=== PATIENT | female | born 1950 | race Caucasian/White ===

== ENCOUNTER 2018-07-12 12:15 | Emergency (ER) | payer OTHER ==
[~2018-07-12] VITALS: Ht 157.5 cm; Wt 77.6 kg
[2018-07-12 12:29] VITALS: Ht 157.5 cm; Wt 77.6 kg
[2018-07-12 14:05] VITALS: BP 155/68
== END 2018-07-12 14:05 | disposition home or self-care (01) ==
LOC: ED 12:15
DX: M25.561 Pain in right knee (principal); I10 Essential (primary) hypertension; E11.9 Type 2 diabetes mellitus without complications; Z88.8 Allergy status to other drugs, medicaments and biological substances
CPT/HCPCS: J1885

== ENCOUNTER 2018-12-10 09:02 | Inpatient (IN) | payer OTHER ==
[~2018-12-10] VITALS: Ht 157.5 cm; Wt 75.8 kg
[2018-12-10 09:11] VITALS: Ht 157.5 cm; Wt 75.8 kg
[2018-12-10 11:15] LABS: BASOPHIL % 0.4 % (0-2); PLATELET COUNT 284 x10^3mcL (130-400); RED CELL DISTRIBUTION WIDTH 14.2 % (11.5-14.5)
[2018-12-10 11:27] LABS: ALBUMIN 3.4 g/dL (3.4-5.0); BILIRUBIN TOTAL 0.82 mg/dL (0.20-1.00); CALCIUM 9.5 mg/dL (8.5-10.1); POTASSIUM SERUM 3.2 mmol/L (3.5-5.1); TOTAL PROTEIN, SERUM 7.3 g/dL (6.4-8.2)
[2018-12-10 13:06] LABS: UA SPECIFIC GRAVITY 1.015 (1.005-1.035); microscopic required? YES; urine erythrocyte 1+ (NEGATIVE)
[2018-12-10] MEDS ORDERED: TOPROL XL25 MG (14:34)
[2018-12-10] MEDS ORDERED: ZESTRIL5 MG (14:34)
[2018-12-10] MEDS ORDERED: METFORMIN HYDR500 M1 PO (14:34)
[2018-12-10] MEDS ORDERED: GLYBURIDE5 MG (14:34)
[2018-12-10] MEDS ORDERED: LOMOTIL1 TAB (14:35)
[2018-12-10] MEDS ORDERED: LIPITOR10 MG (14:36)
[2018-12-10] MEDS ORDERED: GLUCOPHAGE XR500 MG (14:37)
[2018-12-10 16:55] VITALS: BP 111/53
[2018-12-10 17:01] LABS: CHOLESTEROL/HDL RATIO 3.1; MAGNESIUM 1.2 mg/dL (1.8-2.4); PHOSPHOROUS 3.8 mg/dL (2.5-4.9)
[2018-12-10 17:16] LABS: T3 TOTAL 0.93 ng/mL
[2018-12-10 17:20] LABS: FREE T4 1.22 ng/dL (0.76-1.46); FREE THYROXINE INDEX 2.2 ug/dL (1.4-4.5); T4(THYROXINE) 6.4 ug/dL (4.7-13.3)
[2018-12-10 17:58] LABS: AMPHETAMINE QUAL UR NONE DETECTED (See below)
[2018-12-10 21:21] VITALS: BP 135/62
[2018-12-11 05:23] VITALS: BP 131/58
[2018-12-11 06:31] LABS: CARBON DIOXIDE 25.4 mmol/L (21-32); CHLORIDE SERUM 106 mmol/L (98-107); CREATININE SERUM 0.8 mg/dL (0.6-1.0); GFR1 > 60 mL/min; GLUCOSE SERUM 152 mg/dL (74-106); MAGNESIUM 1.7 mg/dL (1.8-2.4); PHOSPHOROUS 2.7 mg/dL (2.5-4.9); POTASSIUM SERUM 3.9 mmol/L (3.5-5.1); SODIUM SERUM 141 mmol/L (136-145)
[2018-12-11 06:47] LABS: BASOPHIL % 0.4 % (0-2); PLATELET COUNT 280 x10^3mcL (130-400); RED CELL DISTRIBUTION WIDTH 14.1 % (11.5-14.5)
[2018-12-11 09:00] VITALS: BP 142/52
[2018-12-11] MEDS ORDERED: CIPROFLOXACIN500 MG PO (11:35)
[2018-12-11] MEDS ORDERED: MOT600 PO (11:36)
[2018-12-11 12:00] VITALS: BP 123/53
== END 2018-12-11 15:30 | disposition home or self-care (01) | DRG 73 ==
LOC: ED 09:02 → DU 15:46
PROVIDERS: Emergency Medicine; ADMIT Family Medicine
DX: G90.8 Other disorders of autonomic nervous system (principal); N17.0 Acute kidney failure with tubular necrosis; N39.0 Urinary tract infection, site not specified; E86.0 Dehydration; E11.65 Type 2 diabetes mellitus with hyperglycemia; F43.0 Acute stress reaction; I10 Essential (primary) hypertension; E87.6 Hypokalemia; E04.1 Nontoxic single thyroid nodule; M54.9 Dorsalgia, unspecified; E83.42 Hypomagnesemia; K58.9 Irritable bowel syndrome, unspecified; Z68.30 Body mass index [BMI] 30.0-30.9, adult; Z79.84 Long term (current) use of oral hypoglycemic drugs
CPT/HCPCS: 82962; 83880; 84439; J0696; J2270; J2405; J3475; J7030; Q0092; Q9967

== ENCOUNTER 2019-11-21 12:31 | Emergency (ER) | payer OTHER, SELFPAY ==
[~2019-11-21] VITALS: Ht 160 cm; Wt 68.5 kg
[~2019-11-21 12:31] MED LIST: CIPROFLOXACIN500 MG PO; GLUCOPHAGE XR500 MG; GLYBURIDE5 MG; LIPITOR10 MG; LOMOTIL1 TAB; METFORMIN HYDR500 M1 PO; MOT600 PO; TOPROL XL25 MG; ZESTRIL5 MG
[2019-11-21 14:58] VITALS: BP 165/74
[2019-11-25] MEDS ORDERED: AUGMENTIN 875-1 EACH PO (12:14)
== END 2019-11-21 16:06 | disposition home or self-care (01) ==
LOC: ED 12:31
DX: B34.9 Viral infection, unspecified (principal); N39.0 Urinary tract infection, site not specified; I10 Essential (primary) hypertension; E11.9 Type 2 diabetes mellitus without complications; Z88.8 Allergy status to other drugs, medicaments and biological substances
CPT/HCPCS: 87804; J1885; J2405; J7030

== ENCOUNTER 2020-02-09 15:24 | Emergency (ER) | payer OTHER, SELFPAY ==
[~2020-02-09] VITALS: Ht 158.8 cm; Wt 68.9 kg
[~2020-02-09 15:24] MED LIST changes: +AUGMENTIN 875-1 EACH PO
[2020-02-09 15:27] VITALS: Ht 158.8 cm; Wt 68.9 kg
[2020-02-09 17:20] LABS: BASOPHIL % 0.1 % (0-2); PLATELET COUNT 340 x10^3mcL (130-400); RED CELL DISTRIBUTION WIDTH 13.5 % (11.5-14.5)
[2020-02-09 17:25] LABS: CALCIUM 9.6 mg/dL (8.5-10.1); CARBON DIOXIDE 30.1 mmol/L (21-32); POTASSIUM SERUM 4.4 mmol/L (3.5-5.1)
[2020-02-09 17:29] LABS: ALBUMIN 3.6 g/dL (3.4-5.0); BILIRUBIN TOTAL 0.6 mg/dL (0.20-1.00); C REACTIVE PROTEIN 4.7 mg/dL (<=0.9); TOTAL PROTEIN, SERUM 7.6 g/dL (6.4-8.2)
[2020-02-09 18:30] VITALS: BP 132/76
== END 2020-02-09 18:30 | disposition home or self-care (01) ==
LOC: ED 15:24
PROVIDERS: Emergency Medicine
DX: R07.89 Other chest pain (principal); R06.02 Shortness of breath; R05 Cough; I10 Essential (primary) hypertension; E11.9 Type 2 diabetes mellitus without complications; E78.00 Pure hypercholesterolemia, unspecified; Z88.1 Allergy status to other antibiotic agents; Z88.5 Allergy status to narcotic agent; Z20.828 Contact with and (suspected) exposure to other viral communicable diseases
CPT/HCPCS: 36600; 83880; 87804; Q0092; U0003-CS